=== PATIENT | male | born 1980 | race Caucasian/White ===

== ENCOUNTER 2017-09-30 10:44 | Outpatient (CLI) | payer BC ==
--- NOTE | 2017-09-30 13:18 | RAD ---
THREE VIEWS CERVICAL SPINE: 09/30/2017 HISTORY: Neck pain. FINDINGS: C1 to cervicothoracic junction is seen on the lateral view. The vertebral body heights and interver tebral disk spaces are within normal limits. No fracture or subluxation is seen. The prevertebral soft tissues are within normal limits. IMPRESSION: Normal views of the cervical spine. No acute osseous abnormality is seen involving the cervical spi ne. POS: [facility]ADI
== END 2017-09-30 10:45 | disposition home or self-care (01) ==
LOC: RAD-FRANK 10:44
PROVIDERS: ATTEND Nurse Practitioner Family
DX: M54.2 Cervicalgia (principal)
CPT/HCPCS: 72040

== ENCOUNTER 2021-01-17 12:29 | Outpatient (CLI) | payer BC ==
--- NOTE | 2021-01-17 13:40 | ULT ---
SOFT TISSUE ULTRASOUND LOWER RIGHT BACK REGION: 01/17/21 INDICATIONS: Palpable lump right lower back region. FINDINGS: No evidence of cyst or abscess. There is an echogenic focus measuring approximately 2.0 x 1.0 cm manny esponding to the palpable area in the lower right back region. This is indeterminate by ultrasound. I t could represent lipoma. However, other soft tissue masses are not excluded. IMPRESSION: No evidence of cyst or abscess. There is a mildly hyperechoic solid mass of subcutaneous tissues whic h corresponds to the palpable abnormality. POS: [facility]
== END 2021-01-17 12:30 | disposition home or self-care (01) ==
LOC: BICULT 12:29
PROVIDERS: ATTEND Nurse Practitioner Family
DX: D17.1 Benign lipomatous neoplasm of skin and subcutaneous tissue of trunk (principal)
CPT/HCPCS: 76999

== ENCOUNTER 2025-09-11 08:38 | Emergency (ER) | payer BC ==
[2025-09-11] MEDS ORDERED: Boostrix 0.5 ML (Tdap) VIAL (>/=7 yrs of age) ONE (08:46)
[2025-09-11 08:59] LABS: #Basophils Less than 0.03 10x3/uL (0.0-0.2); #Eosinophils 0.05 10x3/uL (0.0-0.7); #Monocytes 0.91 10x3/uL (0.11-0.59); #Neutrophils 5.11 10x3/uL (1.40-6.50); %Basophils 0.3 % (0.0-1.0); %Eosinophils 0.7 % (0.0-10.0); %Lymphocytes 19.9 % (21.0-51.0); %Monocytes 11.9 % (0.0-10.0); %Neutrophils 67.1 % (42.0-75.0); Hematocrit 47.0 % (42.0-52.0); Hemoglobin 16.0 g/dL (14.0-18.0); Mean Corpuscular Hemoglobin 31.7 pg (27.0-31.0); Mean Corpuscular Volume 93.1 fL (78.0-98.0); Platelet Count 197 10x3/uL (130-400); Red Blood Cell (RBC) Count 5.05 mill/uL (4.70-6.10); White Blood Cell (WBC) Count 7.62 10x3/uL (4.8-10.8)
[2025-09-11 09:19] LABS: ALT (SGPT) 39 U/L (Less than 45); AST (SGOT) 46 U/L (11-34); Albumin 4.2 g/dL (3.1-4.5); Alkaline Phosphatase 58 U/L (40-110); Anion Gap 8 mmol/L (10-20); BUN (Urea Nitrogen) 24 mg/dL (8.9-20.6); Bilirubin, Total 0.6 mg/dL (0.3-1.2); Calc. Creatinine Clearance 0 mL/min (70-130); Calcium 9.1 mg/dL (7.8-10.44); Carbon Dioxide 27 mmol/L (22-29); Chloride 106 mmol/L (98-107); Globulin 2.7 g/dL (2.4-3.5); Glucose 110 mg/dL (70-105); Potassium 4.3 mmol/L (3.5-5.1); Sodium 137 mmol/L (136-145)
[2025-09-11] MEDS ORDERED: Iopamidol-370 76% 500 ML MDV (1 ML CHARGE) ONE (10:10)
== END 2025-09-11 10:59 | disposition home or self-care (01) ==
LOC: ERS 08:38
DX: S70.12XA Contusion of left thigh, initial encounter (principal); S30.13XA Contusion of flank (latus) region, initial encounter; S60.512A Abrasion of left hand, initial encounter; S60.511A Abrasion of right hand, initial encounter; S00.81XA Abrasion of other part of head, initial encounter; S00.01XA Abrasion of scalp, initial encounter; N17.9 Acute kidney failure, unspecified; V99.XXXA Unspecified transport accident, initial encounter
CPT/HCPCS: 70450; 70486; 71260; 72125; 74177; 80053; 85025; 86850; 86900; 86901; 90471; 90715; 94760; 96360; G0390; Q9967